=== PATIENT | female | born 1960 | race American Indian/Alaskan Native ===

== ENCOUNTER 2016-12-24 09:29 | Outpatient (CLI) | payer MEDICARE ==
--- NOTE | 2016-12-24 15:00 | Mammography Report ---
Bilateral digital screening mammogram with CAD. This is a new baseline study since the patient's prior mammogram was greater than 10 years ago and is unavailable. Findings: There is intermediate density of the fibroglandular tissue. Small circumscribed nodular opacities are seen in the axillary tail and axilla each breast consistent with small lymph nodes. No masses or architectural distortion. Impression: No suspicious findings. BI-RADS code: 2. Recommendation: Annual screening.
== END 2016-12-24 09:30 | disposition home or self-care (01) ==
LOC: MAMMO 09:29
PROVIDERS: ATTEND Internal Medicine
DX: Z12.31 Encounter for screening mammogram for malignant neoplasm of breast (principal)
CPT/HCPCS: 77067; G0202

== ENCOUNTER 2018-01-28 09:06 | Outpatient (CLI) | payer MEDICARE ==
--- NOTE | 2018-01-28 12:32 | Ultrasound Report ---
ULTRASOUND RENAL BILATERAL HISTORY: Hematuria. TECHNIQUE: transabdominal ultrasound with color Doppler interrogation. FINDINGS: The right kidney measures 9.4cm. Right renal cortex: 1.5cm. The left kidney measures 11.5cm. Left renal cortex: 1.3cm. Scans of the kidneys show normal renal contours. There is normal central calyceal clustering and good preservation of the cortical thickness. There is no evidence of mass or hydronephrosis. 3.4 cm simple cyst in the inferior left kidney is noted. The views of the bladder and the region of the ureters appear normal. IMPRESSION: Unremarkable renal ultrasound. Simple left renal cyst.
== END 2018-01-28 09:07 | disposition home or self-care (01) ==
LOC: US 09:06
PROVIDERS: ATTEND Internal Medicine
DX: N28.1 Cyst of kidney, acquired (principal)
CPT/HCPCS: 76770

== ENCOUNTER 2019-01-17 08:07 | Day surgery (SDC) | payer MEDICARE ==
[~2019-01-17 08:07] MED LIST: NACL 0.9% 1000 ML 1,000 ML IV SCH
--- NOTE | 2019-01-17 10:17 | Anesthesia Consultation ---
Anesthesia Consult and Med Hx Date of service: 01/17/19 - Airway Anesthetic Teeth Evaluation: Poor, Chipped ROM Head & Neck: Adequate Mental/Hyoid Distance: Adequate Mallampati Class: Class III Intubation Access Assessment: Probably Good - Pulmonary Exam CTA: Yes (decresed at bases) - Cardiac Exam Cardiac Exam: RRR - Pre-Operative Health Status ASA Pre-Surgery Classification: ASA3 Proposed Anesthetic Plan: MAC - Pulmonary Hx Smoking: Yes (3-4 cig per day) Hx Asthma: Yes (last attach one year ago) Hx Respiratory Symptoms: Yes SOB: Yes COPD: No Home Oxygen Therapy: No Hx Pneumonia: No Hx Sleep Apnea: Yes (CPAP) - Cardiovascular System Hx Hypertension: Yes Hx Coronary Artery Disease: No Hx Heart Attack/AMI: No Hx Angina: No Hx Percutaneous Transluminal Coronary Angioplasty (PTCA): No Hx Cardia Arrhythmia: Yes (IRRGULER HB, MVP) Hx Pacemaker: No Hx Internal Defibrillator: No Hx Valvular Heart Disease: No Hx Heart Murmur: No (MVP) Hx Peripheral Vascular Disease: No - Central Nervous System Hx Neuromuscular Disorder: Yes (NEUROPATHY HANDS, FEET, LEGS, ARMS) Hx Seizures: Yes CVA: Yes Hx Back Pain: Yes (HX OF MULTIPLE BACK SX) Hx Psychiatric Problems: No - Gastrointestinal Hx Ulcer: No Hx Gastroesophageal Reflux Disease: Yes (ASSOCIATED WITH FOODS, MEDICATIONS) - Endocrine Hx Renal Disease: No Hx End Stage Renal Disease: No Hx Cirrhosis: No Hx Liver Disease: No Hx Insulin Dependent Diabetes: No Hx Non-Insulin Dependent Diabetes: No Hx Thyroid Disease: No Hx Hypothyroidism: No Hx Hyperthyroidism: No - Hematic Hx Anemia: Yes Hx Sickle Cell Disease: No - Other Systems Hx Alcohol Use: No Hx Substance Use: No Hx Cancer: No
--- NOTE | 2019-01-17 10:20 | Anesthesia Day of Surgery ---
Anesthesia Day of Surgery - Day of Surgery Patient Examined: Yes Patient H&P Reviewed: Yes Patient is NPO: Yes Beta Blockers: No Cardiac Clearance: No Pulmonary Clearance: No Arsen's Test: N/A
--- NOTE | 2019-01-17 10:22 | Progress Note ---
Subjective Date of service: 01/17/19 Principal diagnosis: COLON SCREENING Interval history: SEIZURE CVA MANUEL CPAP SMOKER MVP ASTHMIA NEUROPATHY Objective - Constitutional Vitals: Vital Signs - 12hr 01/17/19 09:15 Temperature 98.4 F Pulse Rate 66 Respiratory 14 Rate Blood Pressure 170/97 O2 Sat by Pulse 98 Oximetry
[2019-01-17] MEDS ORDERED: DIPRIVAN 10 MG/ML IV ONE ×2 (10:33)
[2019-01-17] MEDS ORDERED: NORMODYNE IV ONE (10:56)
--- NOTE | 2019-01-17 11:08 | Short Stay Summary ---
Short Stay Documentation Date of service: 01/17/19 Narrative H&P: The patient presents for surveillance colonoscopy for polyps. Last study was 5 years ago. - History Past Medical History: hypertension, seizures, stroke, other (Asthma) Past Surgical History: cholecystectomy, hysterectomy, Other (brain surgery in 2014, hx spinal surgery) Social history: no smoking, no alcohol abuse - Allergies and Medications Current Medications: Allergies aspirin Allergy (Verified 12/02/17 13:38) Shortness of Breath Home Medications Medication Instructions Recorded Confirmed Last Taken Type hydrALAZINE [Apresoline TAB] 100 mg PO BID #60 tablet 11/11/15 01/17/19 01/17/19 Rx levETIRAcetam [Keppra TAB] 750 mg PO BID #60 tablet 11/11/15 01/17/19 01/16/19 Rx Gabapentin [Neurontin] 800 mg PO TID 04/28/18 01/17/19 01/16/19 History Clopidogrel [Plavix] 75 mg PO QDAY #30 tablet 04/29/18 01/17/19 01/14/19 Rx Albuterol Sulfate [Ventolin Hfa] 2 puff INHALATION DAILY PRN 01/16/19 01/17/19 01/16/19 History Fluticasone/Salmeterol(Nf) [Advair 1 puff INHALATION DAILY PRN 01/16/19 01/17/19 01/16/19 History HFA 115-21 mcg] Lisinopril [Zestril TAB] 10 mg PO QDAY 01/16/19 01/17/19 01/16/19 History Atorvastatin 1 tab PO DAILY 01/17/19 01/17/19 01/16/19 History cloNIDine [Catapres] 0.2 mg PO BID 01/17/19 01/17/19 01/16/19 History Active Medications Sodium Chloride (Nacl 0.9% 1000 Ml) 1,000 mls @ 50 mls/hr IV DIRECT PEDRO Last Admin: 01/17/19 09:15 Dose: 50 mls/hr Documented by: - Physical exam General appearance: no acute distress, well-nourished Integumentary: no rash, no growths, no abnormal pigmentation HEENT: Atraumatic, PERRLA, EOMI, Mucous membr. moist/pink Lungs: Clear to auscultation, Normal air movement Breasts: deferred Heart: Regular rate, Normal S1, Normal S2, No murmurs, Murmur, Gallops Gastrointestinal: normoactive bowel sounds, no absent bowel sounds, no tenderness, no distended, no masses, no guarding, no organomegaly Female Genitourinary: deferred Rectal Exam: normal exam-external/orifice, normal rectal tone, no mass Extremities: no ischemia, pulses intact, pulses symmetrical, No edema, normal temperature, normal color, Full ROM Neurological: Normal gait, Normal speech, Strength at 5/5 X4 ext, Normal tone, Sensation intact, Cranial nerves 3-12 NL - Brief post op/procedure progress note Date of procedure: 01/17/19 Findings: see dictated report Estimated blood loss: none Pathology: list (descending colon polyp) Specimen disposition: to lab Condition: stable - Disposition Condition at discharge: Good Disposition: DC-01 TO HOME OR SELFCARE - Discharge Diagnoses (1) History of colon polyps Status: Acute Short Stay Discharge Plan Activity: other (no driving for 24 hours. Restart plavix in 48 hours. Observation of stools for potential bleeding. May take ASA 81mg until restarting Plavix.) Follow up with: MORGAN FONTANEZ MD [Primary Care Provider] - 7 Days
--- NOTE | 2019-01-17 11:11 | Operative Report ---
Operative Report Operative Report: Date of procedure: 01/17/2019 Preprocedure diagnosis: History of colon polyps, last study 5 years ago. Post procedure diagnosis: 6 mm sessile descending colon polyp. Procedure: Colonoscopy to the cecum with cold snare resection and retrieval. Endoscopist: Dr. Rae Anesthesia: Monitored anesthesia care per anesthesia department Estimated blood loss: 0 Medications: Monitored anesthesia care. See separate report by anesthesia for details. After careful discussion of the nature and purpose of the procedure as well as details of the technique risks benefits and alternatives the patient gave consent. Please see recent history and physical from the office. The patient was placed in the left lateral decubitus position and medicated per anesthesia. A rectal exam was performed sphincter tone was normal there were no masses palpable. The [employer] 570 scope was passed transanally and advanced under continuous direct vision without difficulty to the cecum. The colon was well prepared. The cecum was normal. The ascending colon was normal and on forward and retroflexed views. The transverse colon and sigmoid colon were normal. There was a 6 mm sessile polyp in the descending colon. The polyp was removed carefully with the cold snare and retrieved by suction. No bleeding was encountered on prolonged observation. The rectum was normal on forward and retroflexed views. The procedure was well-tolerated overall and the patient was observed in recovery. Conclusions: 6 mm sessile polyp in the descending colon. Plan: Repeat colonoscopy in 5 years. Restart Plavix in 48 hours. Signed electronically: Luis Rae M.D.
[2019-01-17 11:27] VITALS: BP 172/97
--- NOTE | 2019-01-17 13:39 | Post Anesthesia Evaluation ---
- Post Anesthesia Evaluation Patient Participated: Yes (sleeping) Airway Patent: Yes Stable Respiratory Function: Yes Nausea/Vomiting: No Temp > 96.8F: Yes Pain Manageable: Yes Adequeate Hydration: Yes Anesthesia Complications: No Block Receding Appropriately: Not Applicable Patient on Ventilator: No
== END 2019-01-17 08:08 | disposition home or self-care (01) ==
LOC: GIO 08:07
PROVIDERS: ATTEND Internal Medicine Gastroenterology
DX: Z12.11 Encounter for screening for malignant neoplasm of colon (principal); K63.5 Polyp of colon; I10 Essential (primary) hypertension; G40.909 Epilepsy, unspecified, not intractable, without status epilepticus; G47.33 Obstructive sleep apnea (adult) (pediatric); E78.5 Hyperlipidemia, unspecified; E78.00 Pure hypercholesterolemia, unspecified; J45.909 Unspecified asthma, uncomplicated; K21.9 Gastro-esophageal reflux disease without esophagitis; M19.90 Unspecified osteoarthritis, unspecified site; F32.9 Major depressive disorder, single episode, unspecified; E66.01 Morbid (severe) obesity due to excess calories; Z68.34 Body mass index [BMI] 34.0-34.9, adult; Z86.718 Personal history of other venous thrombosis and embolism; Z79.899 Other long term (current) drug therapy; Z88.6 Allergy status to analgesic agent; Z98.891 History of uterine scar from previous surgery; Z90.49 Acquired absence of other specified parts of digestive tract; Z98.51 Tubal ligation status; Z90.710 Acquired absence of both cervix and uterus; Z87.442 Personal history of urinary calculi; Z80.3 Family history of malignant neoplasm of breast; Z91.81 History of falling; Z98.890 Other specified postprocedural states; Z86.73 Personal history of transient ischemic attack (TIA), and cerebral infarction without residual deficits; Z86.2 Personal history of diseases of the blood and blood-forming organs and certain disorders involving the immune mechanism; Z86.69 Personal history of other diseases of the nervous system and sense organs
CPT/HCPCS: 45385; 88305; J2704; J7030

== ENCOUNTER 2019-05-31 12:35 | Emergency (ER) | payer MEDICARE ==
[2019-05-31] MEDS ORDERED: PROVENTIL IH ONE (13:19)
[2019-05-31] MEDS ORDERED: TYLENOL PO ONE (13:19)
[2019-05-31] MEDS ORDERED: NACL 0.9% 500 ML 500 ML IV ONE (13:19)
[2019-05-31] MEDS ORDERED: CARAFATE PO ONE (13:19)
[2019-05-31] MEDS ORDERED: PEPCID IV ONE (13:19)
--- NOTE | 2019-05-31 13:31 | Emergency Department Report ---
<KIRK SYKES - Last Filed: 05/31/19 15:38> ED General Adult HPI - General Chief complaint: Dyspnea/Respdistress Stated complaint: RAMBO Time Seen by Provider: 05/31/19 13:13 Source: patient, EMS (ems notes not available at time of chart dictation), RN notes reviewed, old records reviewed Mode of arrival: Stretcher Limitations: Physical Limitation - History of Present Illness Initial comments: This is a 58-year-old female. The patient is not known to this provider previously. Past medical history includes hypokalemia, hypertension, chest pain, asthma. Patient had a negative nuclear stress test last year. Patient al so had a CT scan of her chest last year negative for pulmonary embolism. Patient presents to the ER today with complaint of nontraumatic central chest wall pain, cough, wheezing, shortness of breath. The chest pain is central and does not radiate anywhere. It does not have exacerbating or relieving factors. Patient's is reportedly wheezing upon arrival with EMS, given Solu-Medrol, magnesium, and albuterol. The patient denies DVT, pulmonary embolus risk factors. No recent aspirin consumption. Patient makes no complaint of headache, neck pain, abdominal pain, irritative sinus obstructive urinary symptoms, and denies additional symptoms all given. Currently, the patient is speaking on her cell phone and does not appear to be in any acute distress. -: Gradual, hour(s) Location: chest Severity scale (0 -10): 8 Quality: aching Consistency: other Improves with: other Worsens with: other - Related Data Home Medications Medication Instructions Recorded Confirmed Last Taken Gabapentin [Neurontin] 800 mg PO TID 04/28/18 01/17/19 01/16/19 Albuterol Sulfate [Ventolin Hfa] 2 puff INHALATION DAILY PRN 01/16/19 01/17/19 01/16/19 Fluticasone/Salmeterol(Nf) [Advair 1 puff INHALATION DAILY PRN 01/16/19 01/17/19 01/16/19 HFA 115-21 mcg] Lisinopril [Zestril TAB] 10 mg PO QDAY 01/16/19 01/17/19 01/16/19 Atorvastatin 1 tab PO DAILY 01/17/19 01/17/19 01/16/19 cloNIDine [Catapres] 0.2 mg PO BID 01/17/19 01/17/19 01/16/19 Previous Rx's Medication Instructions Recorded Last Taken Type hydrALAZINE [Apresoline TAB] 100 mg PO BID #60 tablet 11/11/15 01/17/19 Rx levETIRAcetam [Keppra TAB] 750 mg PO BID #60 tablet 11/11/15 01/16/19 Rx Acetaminophen [Non-Aspirin Extra 500 mg PO Q6HR PRN #30 tablet 05/31/19 Unknown Rx Strength] Albuterol Sulfate [Proair 90 mcg IH Q4HR PRN #2 aer.pow.ba 05/31/19 Unknown Rx Respiclick] Doxycycline Hyclate [Doxycycline 100 mg PO Q12HR 7 Days #14 tab 05/31/19 Unknown Rx Hyclate TAB] Famotidine [Pepcid] 20 mg PO BID #30 tablet 05/31/19 Unknown Rx Potassium Chloride 20 meq PO BID #30 packet 05/31/19 Unknown Rx predniSONE [Deltasone] 40 mg PO QDAY #8 tab 05/31/19 Unknown Rx Allergies Allergy/AdvReac Type Severity Reaction Status Date / Time aspirin Allergy Shortness Verified 12/02/17 13:38 of Breath ED Review of Systems Constitutional: denies: diaphoresis, fever, malaise Eyes: denies: eye discharge ENT: congestion Respiratory: shortness of breath, wheezing Cardiovascular: chest pain Gastrointestinal: denies: vomiting Genitourinary: denies: dysuria Musculoskeletal: denies: back pain Skin: denies: lesions Neurological: denies: weakness Psychiatric: denies: anxiety ED Past Medical Hx - Past Medical History Hx Hypertension: Yes Hx CVA: Yes Hx Heart Attack/AMI: No Hx Congestive Heart Failure: No Hx Diabetes: No Hx Deep Vein Thrombosis: Yes Hx Liver Disease: No Hx Renal Disease: No Hx Sickle Cell Disease: No Hx Arthritis: Yes Hx Seizures: Yes Hx Kidney Stones: Yes Hx Asthma: Yes (last attach one year ago) Hx COPD: No Additional medical history: Sleep apnea. intubated 4 times due to asthma. gallstones. -January 2016 - Surgical History Hx Pacemaker: No Hx Internal Defibrillator: No Hx Cholecystectomy: Yes Additional Surgical History: blood clots to right side of head, stent to carotid artery? hysterectomy. kidney stones. back sugery-rods/screws placed in December - Social History Smoking Status: Former Smoker Substance Use Type: None - Medications Home Medications: Home Medications Medication Instructions Recorded Confirmed Last Taken Type hydrALAZINE [Apresoline TAB] 100 mg PO BID #60 tablet 11/11/15 01/17/19 01/17/19 Rx levETIRAcetam [Keppra TAB] 750 mg PO BID #60 tablet 11/11/15 01/17/19 01/16/19 Rx Gabapentin [Neurontin] 800 mg PO TID 04/28/18 01/17/19 01/16/19 History Albuterol Sulfate [Ventolin Hfa] 2 puff INHALATION DAILY PRN 01/16/19 01/17/19 01/16/19 History Fluticasone/Salmeterol(Nf) [Advair 1 puff INHALATION DAILY PRN 01/16/19 01/17/19 01/16/19 History HFA 115-21 mcg] Lisinopril [Zestril TAB] 10 mg PO QDAY 01/16/19 01/17/19 01/16/19 History Atorvastatin 1 tab PO DAILY 01/17/19 01/17/19 01/16/19 History cloNIDine [Catapres] 0.2 mg PO BID 01/17/19 01/17/19 01/16/19 History Acetaminophen [Non-Aspirin Extra 500 mg PO Q6HR PRN #30 tablet 05/31/19 Unknown Rx Strength] Albuterol Sulfate [Proair 90 mcg IH Q4HR PRN #2 aer.pow.ba 05/31/19 Unknown Rx Respiclick] Doxycycline Hyclate [Doxycycline 100 mg PO Q12HR 7 Days #14 tab 05/31/19 Unknown Rx Hyclate TAB] Famotidine [Pepcid] 20 mg PO BID #30 tablet 05/31/19 Unknown Rx Potassium Chloride 20 meq PO BID #30 packet 05/31/19 Unknown Rx predniSONE [Deltasone] 40 mg PO QDAY #8 tab 05/31/19 Unknown Rx ED Physical Exam - General Limitations: No Limitations General appearance: alert, in no apparent distress - Head Head exam: Present: atraumatic, normocephalic - Eye Eye exam: Present: normal appearance. Absent: nystagmus - ENT ENT exam: Present: normal exam, normal orophraynx, mucous membranes moist, normal external ear exam - Neck Neck exam: Present: normal inspection, full ROM. Absent: tenderness, meningismus - Respiratory Respiratory exam: Present: decreased breath sounds. Absent: respiratory distress, wheezes, rhonchi, stridor - Cardiovascular Cardiovascular Exam: Present: regular rate, normal rhythm, normal heart sounds. Absent: bradycardia, tachycardia, irregular rhythm, systolic murmur, diastolic murmur, rubs, gallop - GI/Abdominal GI/Abdominal exam: Present: soft. Absent: distended, tenderness, guarding, rebound, rigid, pulsatile mass - Extremities Exam Extremities exam: Present: normal inspection, full ROM, other (2+ pulses noted in the bilateral upper, lower extremities. Compartments soft. No long bony tenderness. The pelvis is stable.). Absent: pedal edema, joint swelling, calf tenderness - Back Exam Back exam: Present: normal inspection, full ROM. Absent: tenderness, CVA tenderness (R), CVA tenderness (L), paraspinal tenderness, vertebral tenderness - Neurological Exam Neurological exam: Present: alert, oriented X3, other (Extraocular movements intact. Tongue midline. No facial droop. Facial sensation intact to light touch in the V1, V2, V3 distribution bilaterally. 5 and 5 strength in 4 extremities.. Sensation is intact to light touch in 4 extremities.). Absent: motor sensory deficit - Psychiatric Psychiatric exam: Present: normal affect, normal mood - Skin Skin exam: Present: warm, dry, intact, normal color. Absent: rash ED Course - Reevaluation(s) Reevaluation #1: 05/31/19 15:18 Differential diagnosis, including but not limited to: GERD, gastritis, costochondritis, pneumonia, pneumonitis, acute coronary syndrome, pulmonary embolism Assessment and plan: 58-year-old female, no pulmonary embolus or DVT risk factors, low risk by well's criteria, not tachycardic currently, not Currently, EKG unchanged from prior, negative nuclear stress test March 2018, low risk for major adverse cardiac event as per the heart score. Then to be hypokalemic, again, as last year, her potassium will be repleted, we will treat her pain, d-dimer sent, elevated, CT scan of the chest pending, repeat troponin pending, repeat EKG pending. Reevaluation #2: 05/31/19 15:38 care will be transferred to the oncoming physician, Dr. Guardado, to follow up on repeat EKG, troponin, and CT scan of the chest. Patient resting comfortably in stretcher, and in no acute distress, continues to play on a cellular phone. ED Medical Decision Making - Lab Data Result diagrams: 05/31/19 13:24 05/31/19 13:24 Vital Signs 05/31/19 05/31/19 05/31/19 12:48 12:57 13:00 Pulse Rate 91 H Respiratory 23 16 Rate Blood Pressure 159/93 Blood Pressure 159/80 [Right] O2 Sat by Pulse 98 98 96 Oximetry 05/31/19 05/31/19 05/31/19 13:30 14:00 14:30 Pulse Rate 80 84 86 Respiratory 22 12 18 Rate Blood Pressure 146/73 154/95 171/92 Blood Pressure [Right] O2 Sat by Pulse 94 92 92 Oximetry 05/31/19 15:00 Pulse Rate 80 Respiratory 14 Rate Blood Pressure 165/90 Blood Pressure [Right] O2 Sat by Pulse 99 Oximetry Lab Results 05/31/19 05/31/19 05/31/19 Range/Units 13:24 13:24 13:24 WBC 5.3 (4.5-11.0) K/mm3 RBC 4.82 (3.65-5.03) M/mm3 Hgb 11.7 (10.1-14.3) gm/dl Hct 35.4 (30.3-42.9) % MCV 73 L (79-97) fl MCH 24 L (28-32) pg MCHC 33 (30-34) % RDW 15.9 H (13.2-15.2) % Plt Count 252 (140-440) K/mm3 Lymph % (Auto) 20.1 (13.4-35.0) % [place] % (Auto) 5.3 (0.0-7.3) % Eos % (Auto) 0.2 (0.0-4.3) % Baso % (Auto) 0.2 (0.0-1.8) % Lymph # 1.1 L (1.2-5.4) K/mm3 [place] # 0.3 (0.0-0.8) K/mm3 Eos # 0.0 (0.0-0.4) K/mm3 Baso # 0.0 (0.0-0.1) K/mm3 Seg Neutrophils % 74.2 H (40.0-70.0) % Seg Neutrophils # 4.0 (1.8-7.7) K/mm3 PT 13.2 (12.2-14.9) Sec. INR 1.03 (0.87-1.13) D-Dimer 383.19 H (0-234) ng/mlDDU Sodium 140 (137-145) mmol/L Potassium 2.8 L* (3.6-5.0) mmol/L Chloride 102.5 (98-107) mmol/L Carbon Dioxide 22 (22-30) mmol/L Anion Gap 18 mmol/L BUN 9 (7-17) mg/dL Creatinine 0.5 L (0.7-1.2) mg/dL Estimated GFR > 60 ml/min BUN/Creatinine Ratio 18 % Glucose 135 H (65-100) mg/dL Calcium 9.0 (8.4-10.2) mg/dL Troponin T < 0.010 (0.00-0.029) ng/mL - EKG Data -: EKG Interpreted by [place] EKG shows normal: sinus rhythm Rate: normal - EKG Data When compared to previous EKG there are: no significant change 05/31/19 15:18 EKG #1 shows a normal sinus rhythm, 80 bpm, with axis deviation, left anterior fascicular block, prolonged IL interval, LVH, abnormal EKG, not consistent with ST elevation myocardial infarction, this is unchanged from prior EKG from 04/28/2018. - Radiology Data Radiology results: pending, report reviewed, image reviewed X-ray the chest is negative for acute disease ED Disposition Clinical Impression: Asthma exacerbation, Hypokalemia, Acute chest pain, Acute bronchitis Disposition: DC-01 TO HOME OR SELFCARE Is pt being admited?: No Does the pt Need Aspirin: No Condition: Stable Instructions: Acute Bronchitis (ED), Chest Pain (ED) Additional Instructions: Take the medications as needed/directed. Drink 5 cups of water per day for the next 7 days. Do not consume metformin medication, if patient takes his medication for the next 48 hours. Follow up with the primary care doctor or dog day care attendant within the next 3-5 days for further outpatient evaluation of chest pain. Return to the emergency room right away with new, worsening or different symptoms not present on initial emergency room evaluation. Prescriptions: predniSONE [Deltasone] 40 mg PO QDAY #8 tab Doxycycline Hyclate [Doxycycline Hyclate TAB] 100 mg PO Q12HR 7 Days #14 tab Acetaminophen [Non-Aspirin Extra Strength] 500 mg PO Q6HR PRN #30 tablet PRN Reason: Pain , Severe (7-10) Famotidine [Pepcid] 20 mg PO BID #30 tablet Potassium Chloride 20 meq PO BID #30 packet Albuterol Sulfate [Proair Respiclick] 90 mcg IH Q4HR PRN #2 aer.pow.ba PRN Reason: Wheezing Referrals: MORGAN OFNTANEZ [Other] - 3-5 Days JEEVAN SNOW MD [Staff Physician] - 3-5 Days <PRITESH GUARDADO - Last Filed: 05/31/19 20:38> ED Review of Systems ROS: Stated complaint: RAMBO Other details as noted in HPI ED Course Vital Signs 05/31/19 05/31/19 05/31/19 12:48 12:57 13:00 Pulse Rate 91 H Respiratory 23 16 Rate Blood Pressure 159/93 Blood Pressure 159/80 [Right] O2 Sat by Pulse 98 98 96 Oximetry 05/31/19 05/31/19 05/31/19 13:30 14:00 14:30 Pulse Rate 80 84 86 Respiratory 22 12 18 Rate Blood Pressure 146/73 154/95 171/92 Blood Pressure [Right] O2 Sat by Pulse 94 92 92 Oximetry 05/31/19 05/31/19 05/31/19 15:00 15:30 16:00 Pulse Rate 80 91 H 90 Respiratory 14 22 22 Rate Blood Pressure 165/90 165/90 175/97 Blood Pressure [Right] O2 Sat by Pulse 99 Oximetry 05/31/19 05/31/19 05/31/19 16:50 17:00 17:30 Pulse Rate 90 90 82 Respiratory 21 19 Rate Blood Pressure 163/96 173/93 163/96 Blood Pressure [Right] O2 Sat by Pulse 98 99 Oximetry ED Medical Decision Making - Lab Data Result diagrams: 05/31/19 13:24 05/31/19 13:24 - Medical Decision Making I evaluated Mrs. Sanchez. She felt much better. She had clear breath sounds on exam. Serial troponins 3 negative. EKG second EKG without acute ischemic changes. CT angiogram without pulmonary embolus and there are upper lobe opacities possible atypical infection. I have prescribed antibiotics. Antibiotics are indicated with CT findings of possible infection. Repeat EKG obtained 1856 Normal sinus rhythm rate 85 beats a minute normal axis normal QT internval for age and gender no ST elevation normal T wave pattern Critical care attestation.: If time is entered above; I have spent that time in minutes in the direct care of this critically ill patient, excluding procedure time. ED Disposition Is pt being admited?: No Does the pt Need Aspirin: No
--- NOTE | 2019-05-31 13:57 | XRay Report ---
CHEST 2 VIEWS INDICATION / CLINICAL INFORMATION: Chest Pain. COMPARISON: None available. FINDINGS: SUPPORT DEVICES: None. HEART / MEDIASTINUM: No significant abnormality. LUNGS / PLEURA: No significant pulmonary or pleural abnormality. No pneumothorax. ADDITIONAL FINDINGS: No significant additional findings. IMPRESSION: No significant abnormality. Signer Name: Richard Baird MD FACR Signed: 05/31/2019 1:53 PM Workstation Name: [id number]
[2019-05-31 14:04] LABS: Basophils % (Auto) 0.2 % (0.0-1.8); Eosinophils % (Auto) 0.2 % (0.0-4.3); Hematocrit 35.4 % (30.3-42.9); Hemoglobin 11.7 gm/dl (10.1-14.3); Lymphocytes # (Auto) 1.1 K/mm3 (1.2-5.4); Lymphocytes % (Auto) 20.1 % (13.4-35.0); Mean Corpuscular HGB Conc 33 % (30-34); Mean Corpuscular Volume 73 fl (79-97); Monocytes # (Auto) 0.3 K/mm3 (0.0-0.8); Monocytes % (Auto) 5.3 % (0.0-7.3); Platelet Count 252 K/mm3 (140-440); Red Blood Count 4.82 M/mm3 (3.65-5.03); Red Cell Distribution Width 15.9 % (13.2-15.2)
[2019-05-31 14:15] LABS: INR 1.03 (0.87-1.13)
[2019-05-31 14:31] LABS: BUN/Creatinine Ratio 18; Blood Urea Nitrogen 9 mg/dL (7-17); Hemolysis Index 3
[2019-05-31] MEDS ORDERED: K-DUR PO ONE (14:39)
[2019-05-31] MEDS: KCL 10MEQ/100ML 10 MEQ/100 ML BAG IV SCH ×4 (15:13→19:08)
--- NOTE | 2019-05-31 17:16 | Cat Scan Report ---
CTA CHEST WITH IV CONTRAST INDICATION: Shortness of breath and chest pain. TECHNIQUE: Axial CT images were obtained through the chest after injection of 100 cc of IV Omnipaque 350 IV cont rast. 3 plane MIP reconstructions were produced. All CT scans at this location are performed using CT dose reduction for ALARA by means of automated exposure control. COMPARISON: CTA chest on 04/28/2018. FINDINGS: Pulmonary Arteries: No pulmonary emboli. Lungs: There are scattered foci of upper lobe predominant peripheral inflammatory tree-in-bud nodular opacities superimposed on chronic subpleural reticulation in both lung apices. There is no pleural e ffusion or pneumothorax. Trachea and Bronchi: No significant abnormality. Heart and Pericardium: Mild coronary atherosclerotic calcifications. Vasculature: No significant abnormality. Lymphatics: No lymphadenopathy. Additional Findings: None. Upper Abdomen: No acute findings. Multiple simple appearing hepatic cysts appear similar to prior trinity dy. Skeletal Structures: There is focal endplate cystic change and disc height loss at the T10 and T11 ve rtebral level with some adjacent soft tissue swelling. IMPRESSION: 1. No CT evidence for pulmonary embolism. 2. Upper lobe predominant areas of tree-in-bud nodular opacities most likely reflecting atypical infe ctious or inflammatory process superimposed upon chronic biapical subpleural reticulation. 3. Endplate cystic change with adjacent mild soft tissue swelling at the T10-T11 this level. My suspi cion is that this is most likely secondary to advanced degenerative disc disease at this level. Howev er, early discitis/osteomyelitis could have a similar appearance. Signer Name: Shaun Sharif MD Signed: 05/31/2019 5:11 PM Workstation Name: [id number]
[2019-05-31] MEDS ORDERED: NACL 0.9% 500 ML 500 ML ONE (17:56)
[2019-05-31 22:40] VITALS: BP 175/89
== END 2019-05-31 20:39 | disposition home or self-care (01) ==
LOC: ED 12:35
DX: J45.901 Unspecified asthma with (acute) exacerbation (principal); E87.6 Hypokalemia; R07.9 Chest pain, unspecified; J20.9 Acute bronchitis, unspecified; I10 Essential (primary) hypertension; I25.2 Old myocardial infarction; M19.90 Unspecified osteoarthritis, unspecified site; R56.9 Unspecified convulsions; Z86.718 Personal history of other venous thrombosis and embolism; Z86.73 Personal history of transient ischemic attack (TIA), and cerebral infarction without residual deficits; Z87.442 Personal history of urinary calculi; Z86.711 Personal history of pulmonary embolism; Z90.49 Acquired absence of other specified parts of digestive tract; Z87.891 Personal history of nicotine dependence; Z88.8 Allergy status to other drugs, medicaments and biological substances; Z79.899 Other long term (current) drug therapy
CPT/HCPCS: 36415; 71046; 71275; 80048; 83735; 84484; 85025; 85379; 85610; 93005; 93010; 96365; 96366; 96375; 99285; J3480; J7040; Q9967

== ENCOUNTER 2019-12-02 04:55 | Observation (INO) | payer MEDICARE ==
[2019-12-02 06:25] LABS: Basophils % (Auto) 0.7 % (0.0-1.8); Eosinophils # (Auto) 0.1 K/mm3 (0.0-0.4); Eosinophils % (Auto) 1.7 % (0.0-4.3); Hematocrit 37.9 % (30.3-42.9); Hemoglobin 11.9 gm/dl (10.1-14.3); Lymphocytes # (Auto) 1.5 K/mm3 (1.2-5.4); Lymphocytes % (Auto) 39.8 % (13.4-35.0); Mean Corpuscular HGB Conc 31 % (30-34); Mean Corpuscular Volume 73 fl (79-97); Monocytes # (Auto) 0.4 K/mm3 (0.0-0.8); Monocytes % (Auto) 11.3 % (0.0-7.3); Platelet Count 282 K/mm3 (140-440); Red Blood Count 5.18 M/mm3 (3.65-5.03); Red Cell Distribution Width 15.5 % (13.2-15.2)
--- NOTE | 2019-12-02 06:28 | XRay Report ---
CHEST 1 VIEW, 12/02/2019 6:07 AM CLINICAL INFORMATION/INDICATION: Chest pain COMPARISON: Chest radiograph, 05/31/2019 FINDINGS: SUPPORT DEVICES: None. HEART: The cardiac silhouette is normal in size. LUNGS/PLEURA: There is no focal airspace disease or significant pleural effusion. Scarring is again n oted at the bilateral lung apices. ADDITIONAL FINDINGS: No additional acute findings. IMPRESSION: 1. No evidence of acute cardiopulmonary process. Signer Name: Cathy Lynn MD Signed: 12/02/2019 6:23 AM Workstation Name: [id number]
[2019-12-02 06:46] LABS: BUN/Creatinine Ratio 30; Blood Urea Nitrogen 15 mg/dL (7-17); Calcium 8.8 mg/dL (8.4-10.2); Hemolysis Index 3
--- NOTE | 2019-12-02 08:16 | Emergency Department Report ---
ED Chest Pain HPI - General Chief Complaint: Chest Pain Stated Complaint: CHEST PAIN Time Seen by Provider: 12/02/19 08:11 Source: patient, family Mode of arrival: Ambulatory Limitations: No Limitations - History of Present Illness Initial Comments: This is a 59-year-old female complains of intermittent chest heaviness during the night. She states that she has been somewhat short of breath but denies nausea and vomiting. She stated that she was sweaty. She is concerned that her potassium is low because her fingertips are numb. However, she has a history of neuropathy as well with various paresthesias and leg pain in the past. She does not complain of cough or pleuritic pain. She's had no recent travel. She states that she's been to [facility] in the past. They have diagnosed her with "mitral valve prolapse". She denies previous cardiac catheterization or stress testing. 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 I do not see that specifically diagnosed. However I do note that the patient had a normal MRI associated with "acute right hemiparesis". Hospitalization 09/16: Reason for admission: left-sided weakness, UTI, seizure disorder, hypertension Condition: Stable Pertinent studies: MRI of the brain was unremarkable for any acute infection, MRI of cervical spine showed small Deeks protrusion and C3 to C4 and C4 to C5 Procedures: None Hospital course: 59 YO Female with HTN, MANUEL, Obesity, Seizure Disorder, CVA RHP, DVT not taking therapeutic anticoagulation, OA, Nephrolithiasis, Asthma presents to ED for evaluation. Pt states that she experienced sudden onset weakness and numbness to her right side, as well as inability to talk and difficulty swallowing. Pt states that her symptoms are markedly worse than usual. Pt reports feeling like "My right side is as heavy as an elephant today". Pt states that symptoms began at 1130 hrs on the day prior to presentation. Pt reports that symptoms have not improved upon waking this morning. Pt transported to [facility]. Pt seen and evaluated in ED and found to have symptoms consistent with new CVA with worsening RHP. Teleneurology consulted. Pt outside therapeutic window for TPA. Pt admitted to telemetry and initiated on CVA protocol. Pt denies fever, chills, CP, Palpitations, NVD, Syncope, BRBPR, Recent ill contacts, leg swelling, calf pain, prolonged travel/immobility, hemoptysis, or productive cough. Pt admitted to telemetry. Patient takes Plavix and is allergic to aspirin. Prior admission on 04/28/18 reviewed. On admission patient was commenced on aspirin and statins. MRI of the brain was done. Unremarkable for any acute ischemia. Neuro consult was obtained. No acute ischemia identified. UTI was identified on admission. Patient treated with IV antibiotics. Symptoms improved. Discharged to follow primary care physician and neurologist in 3 days Disposition: DC-01 TO HOME OR SELFCARE - Discharge Diagnoses (1) Acute right hemiparesis Status: Acute (2) HTN (hypertension) Status: Acute Qualifiers: Hypertension type: essential hypertension Qualified Code(s): I10 - Essential (primary) hypertension (3) Obesity hypoventilation syndrome Status: Acute (4) Seizure Status: Acute (5) Accelerated hypertension Status: Acute MD Complaint: chest pain -: Gradual, minutes(s) (episodes last minutes), hour(s) (intermittently for hours) Onset: during rest Pain Location: substernal Pain Radiation: none Severity scale (0 -10): 8 Quality: heaviness Consistency: intermittent Improves With: nothing Worsens With: nothing re: diaphoresis (states sweating but not acute diaphoresis), dyspnea (not ongoing). denies: nausea, vomting Other Symptoms: denies: cough, fever, syncope Treatments Prior to Arrival: none - Related Data Home Medications Medication Instructions Recorded Confirmed Last Taken Fluticasone/Salmeterol(Nf) [Advair 1 puff INHALATION DAILY PRN 01/16/19 09/04/19 09/04/19 HFA 115-21 mcg] Previous Rx's Medication Instructions Recorded Last Taken Type Albuterol Sulfate [Proair 90 mcg IH Q4HR PRN #2 aer.[email or web address] 05/31/19 09/04/19 Rx Respiclick] Famotidine [Pepcid] 20 mg PO BID #30 tablet 05/31/19 09/04/19 Rx Arformoterol Nebu [Brovana Nebu] 15 mcg IH Q12HRT ml 09/11/19 Unknown Rx AtorvaSTATin [Lipitor] 40 mg PO QHS tablet 09/11/19 Unknown Rx Atorvastatin 40 mg PO DAILY #30 09/11/19 Unknown Rx Budesonide [Pulmicort Respules] 0.5 mg IH Q12HRT #60 nebu 09/11/19 Unknown Rx Clopidogrel [Plavix] 75 mg PO QDAY #30 tablet 09/11/19 Unknown Rx Gabapentin 400 mg PO TID #90 capsule 09/11/19 Unknown Rx cloNIDine [Catapres] 0.2 mg PO BID tablet 09/11/19 Unknown Rx cloNIDine [Catapres] 0.2 mg PO BID #60 09/11/19 Unknown Rx hydrALAZINE [Apresoline TAB] 100 mg PO BID #60 tab 09/11/19 Unknown Rx hydrALAZINE [Apresoline TAB] 100 mg PO BID #60 tablet 09/11/19 Unknown Rx levETIRAcetam [Keppra TAB] 750 mg PO BID #60 tablet 09/11/19 Unknown Rx lisinopriL [Zestril TAB] 10 mg PO QDAY tablet 09/11/19 Unknown Rx lisinopriL [Zestril TAB] 10 mg PO QDAY #30 09/11/19 Unknown Rx Allergies Allergy/AdvReac Type Severity Reaction Status Date / Time aspirin Allergy Shortness Verified 12/02/17 13:38 of Breath Heart Score - HEART Score History: Moderately suspicious EKG: Normal Age: 45-65 Risk factors: > 3 risk factors or hx of atherosclerotic disease Troponin: < normal limit HEART Score: 4 - Critical Actions Critical Actions: 4-6 pts:12-16.6% risk of adverse cardiac event. Should be admitted ED Review of Systems ROS: Stated complaint: CHEST PAIN Other details as noted in HPI Constitutional: denies: chills, fever Eyes: denies: eye pain, eye discharge, vision change ENT: denies: ear pain, throat pain Respiratory: shortness of breath. denies: cough, wheezing Cardiovascular: chest pain. denies: palpitations Endocrine: no symptoms reported Gastrointestinal: denies: abdominal pain, nausea, diarrhea Genitourinary: denies: urgency, dysuria, discharge Musculoskeletal: denies: back pain, joint swelling, arthralgia Skin: denies: rash, lesions Neurological: paresthesias. denies: headache, weakness, numbness, confusion, abnormal gait, vertigo Psychiatric: denies: anxiety, depression Hematological/Lymphatic: denies: easy bleeding, easy bruising ED Past Medical Hx - Past Medical History Previous Medical History?: Yes Hx Hypertension: Yes Hx CVA: Yes Hx Heart Attack/AMI: No Hx Congestive Heart Failure: No Hx Diabetes: No Hx Deep Vein Thrombosis: Yes Hx Liver Disease: No Hx Renal Disease: No Hx Sickle Cell Disease: No Hx Arthritis: Yes Hx Seizures: Yes Hx Kidney Stones: Yes Hx Asthma: Yes (last attach one year ago) Hx COPD: No Hx HIV: No Additional medical history: Sleep apnea. intubated 4 times due to asthma. gallstones. -January 2016 - Surgical History Past Surgical History?: Yes Hx Pacemaker: No Hx Internal Defibrillator: No Hx Cholecystectomy: Yes Additional Surgical History: blood clots to right side of head, stent to carotid artery? hysterectomy, MVP,. kidney stones. back sugery-rods/screws placed in December - Social History Smoking Status: Never Smoker Substance Use Type: None - Medications Home Medications: Home Medications Medication Instructions Recorded Confirmed Last Taken Type Fluticasone/Salmeterol(Nf) [Advair 1 puff INHALATION DAILY PRN 01/16/19 09/04/19 09/04/19 History HFA 115-21 mcg] Albuterol Sulfate [Proair 90 mcg IH Q4HR PRN #2 aer.[email or web address] 05/31/19 09/04/19 09/04/19 Rx Respiclick] Famotidine [Pepcid] 20 mg PO BID #30 tablet 05/31/19 09/04/19 09/04/19 Rx Arformoterol Nebu [Brovana Nebu] 15 mcg IH Q12HRT ml 09/11/19 Unknown Rx AtorvaSTATin [Lipitor] 40 mg PO QHS tablet 09/11/19 Unknown Rx Atorvastatin 40 mg PO DAILY #30 09/11/19 Unknown Rx Budesonide [Pulmicort Respules] 0.5 mg IH Q12HRT #60 nebu 09/11/19 Unknown Rx Clopidogrel [Plavix] 75 mg PO QDAY #30 tablet 09/11/19 Unknown Rx Gabapentin 400 mg PO TID #90 capsule 09/11/19 Unknown Rx cloNIDine [Catapres] 0.2 mg PO BID tablet 09/11/19 Unknown Rx cloNIDine [Catapres] 0.2 mg PO BID #60 09/11/19 Unknown Rx hydrALAZINE [Apresoline TAB] 100 mg PO BID #60 tab 09/11/19 Unknown Rx hydrALAZINE [Apresoline TAB] 100 mg PO BID #60 tablet 09/11/19 Unknown Rx levETIRAcetam [Keppra TAB] 750 mg PO BID #60 tablet 09/11/19 Unknown Rx lisinopriL [Zestril TAB] 10 mg PO QDAY tablet 09/11/19 Unknown Rx lisinopriL [Zestril TAB] 10 mg PO QDAY #30 09/11/19 Unknown Rx ED Physical Exam - General Limitations: No Limitations General appearance: alert, in no apparent distress - Head Head exam: Present: atraumatic, normocephalic - Eye Eye exam: Present: normal appearance. Absent: scleral icterus - ENT ENT exam: Present: mucous membranes moist - Neck Neck exam: Present: normal inspection - Respiratory Respiratory exam: Present: normal lung sounds bilaterally. Absent: respiratory distress - Cardiovascular Cardiovascular Exam: Present: regular rate, normal rhythm. Absent: systolic murmur, diastolic murmur, rubs, gallop - GI/Abdominal GI/Abdominal exam: Present: soft, normal bowel sounds. Absent: distended, tenderness, guarding, rebound - Extremities Exam Extremities exam: Present: normal inspection - Back Exam Back exam: Present: normal inspection - Neurological Exam Neurological exam: Present: alert, oriented X3, CN II-XII intact. Absent: motor sensory deficit - Psychiatric Psychiatric exam: Present: normal affect, normal mood - Skin Skin exam: Present: warm, dry, intact, normal color. Absent: rash ED Course Vital Signs 12/02/19 12/02/19 12/02/19 05:08 08:08 08:09 Temperature 97.8 F Pulse Rate 78 54 L Respiratory 18 16 14 Rate Blood Pressure 115/78 Blood Pressure 126/68 [Left] O2 Sat by Pulse 97 98 98 Oximetry - Reevaluation(s) Reevaluation #1: Discussed with Dr. Viera. States admit to Dr. Walton 12/02/19 08:35 CIRILO score - Cirilo Score Age > 65: (0) No Aspirin use within the Past 7 Days: (0) No 3 or more CAD Risk Factors: (1) Yes 2 or more Angina events in past 24 hrs: (0) No Known CAD with more than 50% Stenosis: (0) No Elevated Cardiac Markers: (0) No ST Deviation Greater than 0.5mm: (0) No CIRILO Score: 1 ED Medical Decision Making - Lab Data Result diagrams: 12/02/19 06:06 12/02/19 06:06 Laboratory Results - last 24 hr 12/02/19 12/02/19 06:06 06:06 WBC 3.9 L RBC 5.18 H Hgb 11.9 Hct 37.9 MCV 73 L MCH 23 L MCHC 31 RDW 15.5 H Plt Count 282 Lymph % (Auto) 39.8 H Weld % (Auto) 11.3 H Eos % (Auto) 1.7 Baso % (Auto) 0.7 Lymph # 1.5 Weld # 0.4 Eos # 0.1 Baso # 0.0 Seg Neutrophils % 46.5 Seg Neutrophils # 1.8 Sodium 139 Potassium 3.8 Chloride 104.7 Carbon Dioxide 23 Anion Gap 15 BUN 15 Creatinine 0.5 L Estimated GFR > 60 BUN/Creatinine Ratio 30 Glucose 107 H Calcium 8.8 Troponin T < 0.010 - EKG Data EKG shows normal: sinus rhythm, axis, intervals, QRS complexes, ST-T waves Rate: normal - EKG Data Interpretation: LVH (suggestive of LVH by voltage criteria read 1 and aVL) - Radiology Data Radiology results: report reviewed (no acute process per radiologist) Critical care attestation.: If time is entered above; I have spent that time in minutes in the direct care of this critically ill patient, excluding procedure time. ED Disposition Clinical Impression: Dyslipidemia Chest pain Qualifiers: Chest pain type: unspecified Qualified Code(s): R07.9 - Chest pain, unspecified Disposition: -09 OP ADMIT IP TO THIS HOSP Is pt being admited?: Yes Does the pt Need Aspirin: Yes Condition: Stable Instructions: Chest Pain (ED) Time of Disposition: 08:36
[2019-12-02] MEDS ORDERED: CLOPIDOGREL 75 MG TAB PO ONE (08:37)
--- NOTE | 2019-12-02 09:55 | History and Physical Report ---
History of Present Illness Date of examination: 12/02/19 Date of admission: 12/02/19 Chief complaint: Chest pain since yesterday History of present illness: 59-year-old female patient with significant past medical history of hypertension CVA DVT seizures osteoarthritis and bronchial asthma , obesity and obstructive sleep apnea presented to the emergency room with intermittent chest pain since last night . Patient grades her pain between 5-6 over 10, pressure to squeezing type not associated with nausea vomiting or diaphoresis Patient sometimes feels short of breath, Past History Past Medical History: hypertension, hyperlipidemia, seizures, stroke, other (Bronchial asthma, peripheral neuropathy) Past Surgical History: cholecystectomy, hysterectomy, Other (Carotid stent placement, back surgery, renal stones, mitral valve prolapse) Social history: denies: smoking, alcohol abuse, prescription drug abuse Family history: hypertension Medications and Allergies Allergies Allergy/AdvReac Type Severity Reaction Status Date / Time aspirin Allergy Shortness Verified 12/02/17 13:38 of Breath Home Medications Medication Instructions Recorded Confirmed Last Taken Type ALBUTEROL Inhaler (OR & NICU) 2 puff IH BID PRN 12/02/19 12/02/19 Unknown History [ProAir HFA Inhaler] Atorvastatin [Lipitor Tab] 80 mg PO QHS 12/02/19 12/02/19 Unknown History Clopidogrel [Plavix] 75 mg PO QDAY 12/02/19 12/02/19 Unknown History Gabapentin [Neurontin] 800 mg PO TID 12/02/19 12/02/19 Unknown History amLODIPine [Norvasc] 10 mg PO DAILY 12/02/19 12/02/19 Unknown History cloNIDine [Catapres] 0.2 mg PO BID 12/02/19 12/02/19 Unknown History hydrALAZINE [Apresoline TAB] 100 mg PO BID 12/02/19 12/02/19 Unknown History levETIRAcetam [Keppra TAB] 750 mg PO BID 12/02/19 12/02/19 Unknown History lisinopriL [Zestril] 20 mg PO QDAY 12/02/19 12/02/19 Unknown History Review of Systems Constitutional: fatigue, no weight loss, no weight gain, no fever, no chills Ears, nose, mouth and throat: no nasal congestion, no nasal discharge Cardiovascular: chest pain, lightheadedness, shortness of breath, no orthopnea, no palpitations, no rapid/irregular heart beat Respiratory: shortness of breath, no cough, no hemoptysis Gastrointestinal: no abdominal pain, no nausea, no vomiting Genitourinary Female: no pelvic pain, no dysuria Musculoskeletal: no myalgias, no arthritis Integumentary: no rash, no lesions Neurological: no seizures, no syncope Psychiatric: no anxiety, no depression Endocrine: no cold intolerance, no heat intolerance Hematologic/Lymphatic: no easy bruising, no easy bleeding Allergic/Immunologic: no urticaria, no allergic rhinitis Exam - Constitutional Vitals: Temp Pulse Resp BP Pulse Ox 97.8 F 54 L 14 126/68 98 12/02/19 05:08 12/02/19 08:08 12/02/19 08:09 12/02/19 08:08 12/02/19 08:09 General appearance: Present: mild distress, well-nourished, obese - EENT Eyes: Present: PERRL, EOM intact - Neck Neck: Present: supple, normal ROM - Respiratory Respiratory effort: normal Respiratory: bilateral: diminished, negative: rales, rhonchi, wheezing - Cardiovascular Rhythm: regular Heart Sounds: Present: S1 & S2 - Extremities Extremities: no ischemia, No edema - Abdominal General gastrointestinal: Present: soft, non-tender, non-distended, normal bowel sounds - Integumentary Integumentary: Present: clear, warm - Musculoskeletal Musculoskeletal: strength equal bilaterally, generalized weakness - Psychiatric Psychiatric: appropriate mood/affect, cooperative - Neurologic Neurologic: moves all extremities Results - Labs CBC & Chem 7: 12/02/19 06:06 12/02/19 06:06 Labs: Abnormal lab results 12/02/19 12/02/19 Range/Units 06:06 06:06 WBC 3.9 L (4.5-11.0) K/mm3 RBC 5.18 H (3.65-5.03) M/mm3 MCV 73 L (79-97) fl MCH 23 L (28-32) pg RDW 15.5 H (13.2-15.2) % Lymph % (Auto) 39.8 H (13.4-35.0) % Sullivan % (Auto) 11.3 H (0.0-7.3) % Creatinine 0.5 L (0.7-1.2) mg/dL Glucose 107 H (65-100) mg/dL Assessment and Plan --Chest pain; Evaluate for acute coronary syndrome Serial cardiac enzymes, EKG as needed EF 60 to 65% and if not done in the last 6 months Cardiology consult, Continue Plavix amlodipine statin Nitroglycerin as needed, Pain medications --Hypertension; moderate control Continue current antihypertensives and PRN medications --Dyslipidemia; statin, low-cholesterol diet --Peripheral neuropathy; gabapentin and supportive care --History of seizures; seizure precautions Continue Kera --Obesity; BMI 36.6 Patient advised weight reduction when medically stable --Possible obstructive sleep apnea; CPAP BiPAP at night Need outpatient sleep study to rule out MANUEL --History of bronchial asthma; oxygen titrate O2 sats more than 90% Nebulizers, IV steroids as needed, supportive care --DVT prophylaxis; Lovenox Monitor closely and adjust management as needed Plan of care reviewed with the patient and her nurse Follow-up cardiology evaluation and recommendations Possible stress test to rule out ischemia I spent 50 minutes coordinating this admission
[2019-12-02] MEDS ORDERED: hydrALAZINE 10 MG TAB PO SCH (10:00)
[2019-12-02] MEDS: LISINOPRIL 10 MG TAB PO SCH (10:05)
[2019-12-02] MEDS: FAMOTIDINE 20 MG TAB PO SCH ×2 (10:07→21:14)
[2019-12-02] MEDS: CLOPIDOGREL 75 MG TAB PO SCH (10:07)
[2019-12-02] MEDS: levETIRAcetam 500 MG TAB PO SCH ×2 (10:07→21:14)
[2019-12-02] MEDS: cloNIDine 0.2 MG TAB PO SCH ×2 (10:08→21:15)
[2019-12-02] MEDS: GABAPENTIN 400 MG CAP PO SCH ×3 (12:08→21:14)
[2019-12-02] MEDS ORDERED: MORPHINE 2 MG/1 ML INJ IV ONE (13:00)
[2019-12-02] MEDS: hydrALAZINE 100 MG TAB PO SCH (21:15)
[2019-12-02] MEDS: oxyCODONE /ACETAMINOPHEN 5-325MG TAB PO PRN (21:35)
[2019-12-02] MEDS: ARFORMOTEROL 15 MCG/2 ML NEBU IH SCH (22:05)
[2019-12-03] MEDS: oxyCODONE /ACETAMINOPHEN 5-325MG TAB PO PRN ×3 (04:45→20:13)
[2019-12-03] MEDS: GABAPENTIN 400 MG CAP PO SCH ×3 (09:17→20:13)
[2019-12-03] MEDS: levETIRAcetam 500 MG TAB PO SCH ×2 (09:17→21:54)
[2019-12-03] MEDS: FAMOTIDINE 20 MG TAB PO SCH ×2 (09:17→21:54)
[2019-12-03] MEDS: CLOPIDOGREL 75 MG TAB PO SCH (09:17)
[2019-12-03] MEDS: cloNIDine 0.2 MG TAB PO SCH ×2 (09:21→21:54)
[2019-12-03] MEDS: LISINOPRIL 10 MG TAB PO SCH (09:21)
[2019-12-03] MEDS: hydrALAZINE 100 MG TAB PO SCH ×2 (09:21→21:54)
[2019-12-03] MEDS: ARFORMOTEROL 15 MCG/2 ML NEBU IH SCH ×2 (10:03→20:47)
--- NOTE | 2019-12-03 18:16 | Consultation ---
History of Present Illness Consult date: 12/03/19 Consult reason: chest pain History of present illness: Patient's a 59-year-old woman who presented with poorly described, atypical c hest pain. Serial ECGs have been normal sinus rhythm, normal ECG. Ago, she had an echocardiogram that reported normal left ventricle systolic function, ejection fraction 60-65%. Cardiac consultation was requested for chest pain assessment. Past History Past Medical History: hypertension, hyperlipidemia, seizures, stroke, other (Bronchial asthma, peripheral neuropathy) Past Surgical History: cholecystectomy, hysterectomy, Other (Carotid stent placement, back surgery, renal stones, mitral valve prolapse) Social history: denies: smoking, alcohol abuse, prescription drug abuse Family history: hypertension Medications and Allergies Allergies Allergy/AdvReac Type Severity Reaction Status Date / Time aspirin Allergy Shortness Verified 12/02/17 13:38 of Breath Home Medications Medication Instructions Recorded Confirmed Last Taken Type ALBUTEROL Inhaler (OR & NICU) 2 puff IH BID PRN 12/02/19 12/02/19 Unknown History [ProAir HFA Inhaler] Atorvastatin [Lipitor Tab] 80 mg PO QHS 12/02/19 12/02/19 Unknown History Clopidogrel [Plavix] 75 mg PO QDAY 12/02/19 12/02/19 Unknown History Gabapentin [Neurontin] 800 mg PO TID 12/02/19 12/02/19 Unknown History amLODIPine [Norvasc] 10 mg PO DAILY 12/02/19 12/02/19 Unknown History cloNIDine [Catapres] 0.2 mg PO BID 12/02/19 12/02/19 Unknown History hydrALAZINE [Apresoline TAB] 100 mg PO BID 12/02/19 12/02/19 Unknown History levETIRAcetam [Keppra TAB] 750 mg PO BID 12/02/19 12/02/19 Unknown History lisinopriL [Zestril] 20 mg PO QDAY 12/02/19 12/02/19 Unknown History Active Meds: Active Medications Arformoterol Tartrate (Brovana Nebu) 15 mcg IH Q12HRT [facility] Last Admin: 12/03/19 10:03 Dose: 15 mcg Documented by: Atorvastatin Calcium (Lipitor) 40 mg PO QHS [facility] Last Admin: 12/02/19 21:14 Dose: 40 mg Documented by: Clonidine HCl (Catapres) 0.2 mg PO BID [facility] Last Admin: 12/03/19 09:21 Dose: Not Given Documented by: Clopidogrel Bisulfate (Plavix) 75 mg PO QDAY [facility] Last Admin: 12/03/19 09:17 Dose: 75 mg Documented by: Famotidine (Pepcid) 20 mg PO BID [facility] Last Admin: 12/03/19 09:17 Dose: 20 mg Documented by: Gabapentin (Gabapentin) 400 mg PO TID [facility] Last Admin: 12/03/19 15:20 Dose: 400 mg Documented by: Hydralazine HCl (Apresoline) 100 mg PO BID [facility] Last Admin: 12/03/19 09:21 Dose: Not Given Documented by: Levetiracetam (Keppra) 750 mg PO BID [facility] Last Admin: 12/03/19 09:17 Dose: 750 mg Documented by: Lisinopril (Zestril) 10 mg PO QDAY [facility] Last Admin: 12/03/19 09:21 Dose: Not Given Documented by: Oxycodone/Acetaminophen (Percocet 5/325) 1 tab PO Q6H PRN PRN Reason: Pain, Moderate (4-6) Last Admin: 12/03/19 12:41 Dose: 1 tab Documented by: Review of Systems Cardiovascular: chest pain, no orthopnea, no palpitations, no rapid/irregular heart beat, no edema, no syncope, no lightheadedness, no shortness of breath Physical Examination Vital Signs Temp Pulse Resp BP Pulse Ox 97.8 F 78 18 115/78 97 12/02/19 05:08 12/02/19 05:08 12/02/19 05:08 12/02/19 05:08 12/02/19 05:08 General appearance: no acute distress HEENT: Positive: PERRL Neck: Positive: neck supple Cardiac: Positive: Reg Rate and Rhythm Lungs: Positive: clear to auscultation Neuro: Positive: Grossly Intact Abdomen: Positive: Soft Female genitourinary: deferred Skin: Positive: Clear Extremities: Absent: edema Results 12/02/19 06:06 12/02/19 06:06 EKG interpretations - Telemetry EKG Rhythm: Sinus Rhythm Assessment and Plan - Patient Problems (1) Chest pain, atypical Current Visit: Yes Status: Acute Plan to address problem: Patient presents with atypical chest pain, serial ECGs are normal, serial cardiac enzymes are normal. A recent echocardiogram reported left ventricle systolic function normal at 60%. A Lexiscan thallium stress test has been ordered for chest pain assessment and will be completed.
--- NOTE | 2019-12-03 18:33 | Progress Note ---
Assessment and Plan Assessment and plan: --Chest pain; mild improvement Serial cardiac enzymes, EKG as needed EF 60 to 65% Lexiscan stress test tomorrow In view of patient's multiple risk factors and intermittent chest pain Cardiology evaluation, Continue Plavix amlodipine statin Nitroglycerin as needed, Pain medications --Hypertension; moderate control Continue current antihypertensives and PRN medications --Dyslipidemia; statin, low-cholesterol diet --Peripheral neuropathy; gabapentin and supportive care --History of seizures; seizure precautions [facility] --Obesity; BMI 36.6 Patient advised weight reduction when medically stable --Possible obstructive sleep apnea; CPAP BiPAP at night Need outpatient sleep study to rule out MANUEL --History of bronchial asthma; oxygen titrate O2 sats more than 90% Nebulizers, IV steroids as needed, supportive care --DVT prophylaxis; Lovenox Monitor closely and adjust management as needed Plan of care reviewed with the patient and her nurse Disposition ; follow clinically , follow stress test If negative may be discharged home . Plan of care discussed with the patient and her nurse History Interval history: Patient seen and examined Medical records reviewed Patient has no new complaints Hospitalist Physical - Constitutional Vitals: Temp Pulse Resp BP Pulse Ox 98.5 F 66 20 136/83 99 12/03/19 12:03 12/03/19 12:03 12/03/19 04:55 12/03/19 12:03 12/03/19 12:03 General appearance: Present: no acute distress, well-nourished, obese - EENT Eyes: Present: PERRL, EOM intact - Neck Neck: Present: supple, normal ROM - Respiratory Respiratory effort: normal Respiratory: bilateral: diminished, negative: rales, rhonchi, wheezing - Cardiovascular Rhythm: regular Heart Sounds: Present: S1 & S2 - Extremities Extremities: no ischemia, No edema - Abdominal General gastrointestinal: soft, non-tender, non-distended, normal bowel sounds - Integumentary Integumentary: Present: clear, warm - Psychiatric Psychiatric: appropriate mood/affect, cooperative - Neurologic Neurologic: CNII-XII intact, moves all extremities Results - Labs CBC & Chem 7: 12/02/19 06:06 12/02/19 06:06 Labs: Laboratory Last Values WBC 3.9 K/mm3 (4.5-11.0) L 12/02/19 06:06 RBC 5.18 M/mm3 (3.65-5.03) H 12/02/19 06:06 Hgb 11.9 gm/dl (10.1-14.3) 12/02/19 06:06 Hct 37.9 % (30.3-42.9) 12/02/19 06:06 MCV 73 fl (79-97) L 12/02/19 06:06 MCH 23 pg (28-32) L 12/02/19 06:06 MCHC 31 % (30-34) 12/02/19 06:06 RDW 15.5 % (13.2-15.2) H 12/02/19 06:06 Plt Count 282 K/mm3 (140-440) 12/02/19 06:06 Lymph % (Auto) 39.8 % (13.4-35.0) H 12/02/19 06:06 [place] % (Auto) 11.3 % (0.0-7.3) H 12/02/19 06:06 Eos % (Auto) 1.7 % (0.0-4.3) 12/02/19 06:06 Baso % (Auto) 0.7 % (0.0-1.8) 12/02/19 06:06 Lymph # 1.5 K/mm3 (1.2-5.4) 12/02/19 06:06 [place] # 0.4 K/mm3 (0.0-0.8) 12/02/19 06:06 Eos # 0.1 K/mm3 (0.0-0.4) 12/02/19 06:06 Baso # 0.0 K/mm3 (0.0-0.1) 12/02/19 06:06 Seg Neutrophils % 46.5 % (40.0-70.0) 12/02/19 06:06 Seg Neutrophils # 1.8 K/mm3 (1.8-7.7) 12/02/19 06:06 Sodium 139 mmol/L (137-145) 12/02/19 06:06 Potassium 3.8 mmol/L (3.6-5.0) 12/02/19 06:06 Chloride 104.7 mmol/L (98-107) 12/02/19 06:06 Carbon Dioxide 23 mmol/L (22-30) 12/02/19 06:06 Anion Gap 15 mmol/L 12/02/19 06:06 BUN 15 mg/dL (7-17) 12/02/19 06:06 Creatinine 0.5 mg/dL (0.7-1.2) L 12/02/19 06:06 Estimated GFR > 60 ml/min 12/02/19 06:06 BUN/Creatinine Ratio 30 % 12/02/19 06:06 Glucose 107 mg/dL (65-100) H 12/02/19 06:06 Calcium 8.8 mg/dL (8.4-10.2) 12/02/19 06:06 Troponin T < 0.010 ng/mL (0.00-0.029) 12/02/19 21:13 Active Medications - Current Medications Current Medications: Generic Name Dose Route Start Last Admin Trade Name Freq PRN Reason Stop Dose Admin Arformoterol Tartrate 15 mcg 12/02/19 20:00 12/03/19 10:03 Brovana Nebu IH 15 mcg Q12HRT PEDRO Administration Atorvastatin Calcium 40 mg 12/02/19 22:00 12/02/19 21:14 Lipitor PO 40 mg QHS PEDRO Administration Clonidine HCl 0.2 mg 12/02/19 10:00 12/03/19 09:21 Catapres PO Not Given BID PEDRO Clopidogrel Bisulfate 75 mg 12/02/19 10:00 12/03/19 09:17 Plavix PO 75 mg QDAY PEDRO Administration Famotidine 20 mg 12/02/19 10:00 12/03/19 09:17 Pepcid PO 20 mg BID PEDRO Administration Gabapentin 400 mg 12/02/19 14:00 12/03/19 15:20 Gabapentin PO 400 mg TID PEDRO Administration Hydralazine HCl 100 mg 12/02/19 22:00 12/03/19 09:21 Apresoline PO Not Given BID PEDRO Levetiracetam 750 mg 12/02/19 10:00 12/03/19 09:17 Keppra PO 750 mg BID PEDRO Administration Lisinopril 10 mg 12/02/19 10:00 12/03/19 09:21 Zestril PO Not Given QDAY PEDRO Oxycodone/Acetaminophen 1 tab 12/02/19 21:15 12/03/19 12:41 Percocet 5/325 PO 1 tab Q6H PRN Administration Pain, Moderate (4-6)
[2019-12-03] MEDS ORDERED: ALBUTEROL 2.5 MG/3 ML NEBU IH ONE (23:15)
[2019-12-04] MEDS: oxyCODONE /ACETAMINOPHEN 5-325MG TAB PO PRN (02:04)
[2019-12-04] MEDS ORDERED: REGADENOSON 0.4 MG/5 ML INJ IV ONE ×2 (07:00→07:25)
[2019-12-04] MEDS: ARFORMOTEROL 15 MCG/2 ML NEBU IH SCH (10:05)
--- NOTE | 2019-12-04 13:07 | Event Note ---
Date: 12/04/19 Patient has no further chest pain, she completed a Lexiscan thallium stress test today, results are pending.
[2019-12-04 13:20] VITALS: BP 160/93
[2019-12-04] MEDS: CLOPIDOGREL 75 MG TAB PO SCH (14:05)
[2019-12-04] MEDS: levETIRAcetam 500 MG TAB PO SCH (14:05)
[2019-12-04] MEDS: FAMOTIDINE 20 MG TAB PO SCH (14:06)
[2019-12-04] MEDS: GABAPENTIN 400 MG CAP PO SCH (14:06)
[2019-12-04] MEDS: hydrALAZINE 100 MG TAB PO SCH (14:06)
[2019-12-04] MEDS: LISINOPRIL 10 MG TAB PO SCH (14:06)
[2019-12-04] MEDS: cloNIDine 0.2 MG TAB PO SCH (14:06)
--- NOTE | 2019-12-04 15:54 | Discharge Summary ---
Providers - Providers Date of Admission: 12/02/19 08:38 Date of discharge: 12/04/19 Attending physician: LOR VEGA 12/02/19 20:16 Consult to Physician [CONS] Routine Comment: Consulting Provider: RC BHANDARI Physician Instructions: Reason For Exam: chest pain Primary care physician: [employer] REPRESENTATIVE Hospitalization Reason for admission: Chest pain Condition: Stable Pertinent studies: Stress test : neg for ishemia CXR : neg Hospital course: 59-year-old female patient with significant past medical history of hypertension CVA DVT seizures osteoarthritis and bronchial asthma , obesity and obstructive sleep apnea presented to the emergency room with intermittent chest pain of one day duration.Evaluated by cardology, medcations optimised,had neg stress test. Patient's symptoms significantly improved. Today patient is comfortable, No new complants.Cleared by cardology Discharge Diagnosis: --Chest pain; mild improvement Serial cardiac enzymes, EKG as needed EF 60 to 65% Lexiscan stress test neg for ischemia In view of patient's multiple risk factors and intermittent chest pain Cardiology evaluation, Continue Plavix amlodipine statin Nitroglycerin as needed, Pain medications --Hypertension; moderate control Continue current antihypertensives and PRN medications --Dyslipidemia; statin, low-cholesterol diet --Peripheral neuropathy; gabapentin and supportive care --History of seizures; [facility] --Obesity; BMI 36.6 Patient advised weight reduction when medically stable --Possible obstructive sleep apnea; CPAP BiPAP at night Need outpatient sleep study to rule out MANUEL --History of bronchial asthma; oxygen titrate O2 sats more than 90% Nebulizers, IV steroids as needed, supportive care --DVT prophylaxis; Lovenox Monitor closely and adjust management as needed Plan of care reviewed with the patient and her nurse Stable at discharge Disposition: DC-01 TO HOME OR SELFCARE Time spent for discharge: 32 min Core Measure Documentation - Palliative Care Palliative Care/ Comfort Measures: Not Applicable - Core Measures Any of the following diagnoses?: none Exam - Constitutional Vitals: Temp Pulse Resp BP Pulse Ox 98.4 F 79 18 160/93 98 12/04/19 00:04 12/04/19 08:18 12/04/19 02:37 12/04/19 12:25 12/04/19 09:19 Plan Activity: advance as tolerated Diet: other (cardiac diet) Additional Instructions: If you have chest pain or shortness of breath contact M.D. or go to emergency room. Follow up with: PRIMARY CAREMD [Primary Care Provider] - 7 Days JEEVAN SNOW MD [Staff Physician] - 7 Days Prescriptions: AtorvaSTATin [Lipitor] 80 mg PO QHS #30 tab Clopidogrel [Plavix] 75 mg PO QDAY #30 tablet
--- NOTE | 2019-12-04 22:24 | Treadmill Report ---
THALLIUM STRESS TEST REPORT LEFT VENTRICLE: Left ventricular chamber size is within normal spread. Perfusion study demonstrates homogeneous uptake of the tracer in all segments, no significant perfusion defects identified. Gated analysis demonstrates normal left ventricular systolic function, ejection fraction 72%. CONCLUSION: Normal myocardial perfusion study. JOB# [id number] CA/NTS
== END 2019-12-04 17:40 | disposition home or self-care (01) ==
LOC: ED 04:55 → 4A 08:38
PROVIDERS: ADMIT Internal Medicine; ATTEND Internal Medicine
DX: I10 Essential (primary) hypertension (principal); E78.5 Hyperlipidemia, unspecified; G62.9 Polyneuropathy, unspecified; G81.91 Hemiplegia, unspecified affecting right dominant side; E66.2 Morbid (severe) obesity with alveolar hypoventilation; J45.909 Unspecified asthma, uncomplicated; Z68.36 Body mass index [BMI] 36.0-36.9, adult; Z86.73 Personal history of transient ischemic attack (TIA), and cerebral infarction without residual deficits; Z90.710 Acquired absence of both cervix and uterus
CPT/HCPCS: 36415; 71045; 78452; 80048; 82962; 84484; 85025; 93005; 93010; 93017; 94640; 94760; 96374; 99284; A9270; A9502; G0378; J2270; J2785

== ENCOUNTER 2022-02-17 10:21 | Emergency (ER) | payer MEDICARE ==
[2022-02-17] MEDS ORDERED: SODIUM CHLORIDE 0.9% 500 ML 500 ML IV ONE (11:34)
[2022-02-17] MEDS ORDERED: MORPHINE 4 MG/1 ML INJ IV ONE (11:34)
[2022-02-17] MEDS ORDERED: ONDANSETRON 4 MG/2 ML INJ IV ONE (11:35)
--- NOTE | 2022-02-17 12:25 | XRay Report ---
CHEST 2 VIEWS INDICATION / CLINICAL INFORMATION: Chest Pain. COMPARISON: 12/02/2019 FINDINGS: SUPPORT DEVICES: None. HEART / MEDIASTINUM: No significant abnormality. LUNGS / PLEURA: No significant pulmonary or pleural abnormality. No pneumothorax. ADDITIONAL FINDINGS: No significant additional findings. IMPRESSION: 1. No acute findings. Signer Name: Alonzo Chavez MD Signed: 02/17/2022 12:20 PM Workstation Name: [email or web address]
[2022-02-17 12:51] LABS: Basophils % (Auto) 0.4 % (0.0-1.8); Eosinophils % (Auto) 0.8 % (0.0-4.3); Hematocrit 34.8 % (30.3-42.9); Hemoglobin 11.1 gm/dl (10.1-14.3); Lymphocytes # (Auto) 1.4 K/mm3 (1.2-5.4); Lymphocytes % (Auto) 35.6 % (13.4-35.0); Mean Corpuscular HGB Conc 32 % (30-34); Mean Corpuscular Volume 74 fl (79-97); Monocytes # (Auto) 0.4 K/mm3 (0.0-0.8); Monocytes % (Auto) 11.2 % (0.0-7.3); Platelet Count 267 K/mm3 (140-440); Red Blood Count 4.73 M/mm3 (3.65-5.03); Red Cell Distribution Width 15.9 % (13.2-15.2)
[2022-02-17 13:06] LABS: Alanine Aminotransferase 39 units/L (7-56); Albumin 3.8 g/dL (3.9-5); Blood Urea Nitrogen 12 mg/dL (7-17); Calcium 9.2 mg/dL (8.4-10.2); Hemolysis Index 8
[2022-02-17 13:07] LABS: BUN/Creatinine Ratio 24
[2022-02-17] MEDS ORDERED: KETOROLAC 30 MG/1 ML INJ IV ONE (13:36)
--- NOTE | 2022-02-17 13:53 | Emergency Department Report ---
ED General Adult HPI - General Chief complaint: High BP Stated complaint: PAIN ALL OVER BODY CHEST Time Seen by Provider: 02/17/22 11:27 Source: patient Mode of arrival: Ambulatory Limitations: No Limitations - History of Present Illness Initial comments: PT PRESENTS TO ED WITH COMPLAINT OF BURNING ALL OVER BODY -: Gradual, week(s) Location: head, chest, abdomen Radiation: non-radiation Severity scale (0 -10): 10 Quality: aching Consistency: intermittent Associated Symptoms: denies: confusion, chest pain, headaches, loss of appetite - Related Data Home Medications Medication Instructions Recorded Confirmed Last Taken Albuterol Mdi (or & Nicu Only) 2 puff IH BID PRN 12/02/19 12/02/19 Unknown [ProAir HFA Inhaler] Gabapentin [Neurontin] 800 mg PO TID 12/02/19 12/02/19 Unknown amLODIPine 10 mg PO DAILY 12/02/19 12/02/19 Unknown cloNIDine [Catapres] 0.2 mg PO BID 12/02/19 12/02/19 Unknown hydrALAZINE [Apresoline TAB] 100 mg PO BID 12/02/19 12/02/19 Unknown levETIRAcetam [Keppra TAB] 750 mg PO BID 12/02/19 12/02/19 Unknown lisinopriL [Zestril TAB] 20 mg PO QDAY 12/02/19 12/02/19 Unknown Previous Rx's Medication Instructions Recorded Last Taken Type AtorvaSTATin [Lipitor] 80 mg PO QHS #30 tab 12/04/19 Unknown Rx Clopidogrel [Plavix] 75 mg PO QDAY #30 tablet 12/04/19 Unknown Rx Famotidine [Pepcid] 20 mg PO BID tablet 12/04/19 Unknown Rx Allergies Allergy/AdvReac Type Severity Reaction Status Date / Time aspirin Allergy Shortness Verified 12/02/17 13:38 of Breath ED Review of Systems ROS: Stated complaint: PAIN ALL OVER BODY CHEST Other details as noted in HPI Constitutional: denies: chills, fever Eyes: denies: eye pain, eye discharge, vision change ENT: denies: ear pain, throat pain Respiratory: denies: cough, shortness of breath, wheezing Cardiovascular: denies: chest pain, palpitations Endocrine: no symptoms reported Gastrointestinal: denies: abdominal pain, nausea, diarrhea Genitourinary: denies: urgency, dysuria, discharge Musculoskeletal: denies: back pain, joint swelling, arthralgia Skin: denies: rash, lesions Neurological: denies: headache, weakness, paresthesias Psychiatric: denies: anxiety, depression Hematological/Lymphatic: denies: easy bleeding, easy bruising ED Past Medical Hx - Past Medical History Previous Medical History?: Yes Hx Hypertension: Yes Hx CVA: Yes Hx Heart Attack/AMI: No Hx Congestive Heart Failure: No Hx Diabetes: No Hx Deep Vein Thrombosis: Yes Hx Liver Disease: No Hx Renal Disease: No Hx Sickle Cell Disease: No Hx Arthritis: Yes Hx Seizures: Yes Hx Kidney Stones: Yes Hx Asthma: Yes (last attach one year ago) Hx COPD: No Hx HIV: No Additional medical history: Sleep apnea. intubated 4 times due to asthma. gallstones. -January 2016 - Surgical History Past Surgical History?: Yes Hx Pacemaker: No Hx Internal Defibrillator: No Hx Cholecystectomy: Yes Additional Surgical History: blood clots to right side of head, stent to carotid artery? hysterectomy, MVP,. kidney stones. back sugery-rods/screws placed in December - Social History Smoking Status: Never Smoker - Medications Home Medications: Home Medications Medication Instructions Recorded Confirmed Last Taken Type Albuterol Mdi (or & Nicu Only) 2 puff IH BID PRN 12/02/19 12/02/19 Unknown History [ProAir HFA Inhaler] Gabapentin [Neurontin] 800 mg PO TID 12/02/19 12/02/19 Unknown History amLODIPine 10 mg PO DAILY 12/02/19 12/02/19 Unknown History cloNIDine [Catapres] 0.2 mg PO BID 12/02/19 12/02/19 Unknown History hydrALAZINE [Apresoline TAB] 100 mg PO BID 12/02/19 12/02/19 Unknown History levETIRAcetam [Keppra TAB] 750 mg PO BID 12/02/19 12/02/19 Unknown History lisinopriL [Zestril TAB] 20 mg PO QDAY 12/02/19 12/02/19 Unknown History AtorvaSTATin [Lipitor] 80 mg PO QHS #30 tab 12/04/19 Unknown Rx Clopidogrel [Plavix] 75 mg PO QDAY #30 tablet 12/04/19 Unknown Rx Famotidine [Pepcid] 20 mg PO BID tablet 12/04/19 Unknown Rx ED Physical Exam - General Limitations: No Limitations General appearance: alert, in no apparent distress - Head Head exam: Present: atraumatic, normocephalic - Eye Eye exam: Present: normal appearance - ENT ENT exam: Present: mucous membranes moist - Neck Neck exam: Present: normal inspection - Respiratory Respiratory exam: Present: normal lung sounds bilaterally. Absent: respiratory distress - Cardiovascular Cardiovascular Exam: Present: regular rate, normal rhythm. Absent: systolic murmur, diastolic murmur, rubs, gallop - GI/Abdominal GI/Abdominal exam: Present: soft, normal bowel sounds - Extremities Exam Extremities exam: Present: normal inspection - Back Exam Back exam: Present: normal inspection - Neurological Exam Neurological exam: Present: alert, oriented X3 - Psychiatric Psychiatric exam: Present: normal affect, normal mood - Skin Skin exam: Present: warm, dry, intact, normal color. Absent: rash ED Course Vital Signs 02/17/22 10:28 Temperature 97.6 F Pulse Rate 80 Respiratory 16 Rate Blood Pressure 221/118 [Left] O2 Sat by Pulse 97 Oximetry ED Medical Decision Making - Lab Data Result diagrams: 02/17/22 12:13 02/17/22 12:13 - EKG Data When compared to previous EKG there are: no significant change - Radiology Data Radiology results: report reviewed, image reviewed - Medical Decision Making work up noted , BP 180/90, pain meds given no distress Critical care attestation.: If time is entered above; I have spent that time in minutes in the direct care of this critically ill patient, excluding procedure time. ED Disposition Clinical Impression: Abdominal pain, chronic, generalized, Uncontrolled hypertension Disposition: HOME / SELF CARE / HOMELESS Is pt being admited?: No Does the pt Need Aspirin: No Condition: Stable Instructions: Hypertension (ED) Referrals: PRIMARY CARE,MD [Primary Care Provider] - 3-5 Days
[2022-02-17] MEDS ORDERED: cloNIDine 0.2 MG TAB PO ONE (15:04)
[2022-02-17 16:46] VITALS: BP 157/94
--- NOTE | 2022-02-19 11:19 | Electrocardiograph Report ---
[facility] Test Date: 2022-02-17 Test Time: 10:55:49 Pat Name: JO ANN VALERIO Department: Room: Gender: F Dolly Pusher: [place] : 1960 Requested By: FABIO REID Order Number: [id number] Reading MD: Richar Duarte Measurements Intervals [place] Rate: 70 P: 54 MN: 241 QRS: 7 QRSD: 95 T: 61 QT: 390 QTc: 421 Interpretive Statements Sinus rhythm Prolonged MN interval No previous ECG available for comparison Electronically Signed On 02-19-2022 11:19:04 EDT by Richar Duarte
== END 2022-02-17 16:48 | disposition home or self-care (01) ==
LOC: ED 10:21
DX: R10.84 Generalized abdominal pain (principal); I10 Essential (primary) hypertension; Z86.73 Personal history of transient ischemic attack (TIA), and cerebral infarction without residual deficits; M19.90 Unspecified osteoarthritis, unspecified site; R56.9 Unspecified convulsions; N20.0 Calculus of kidney; J45.909 Unspecified asthma, uncomplicated; Z86.718 Personal history of other venous thrombosis and embolism; Z91.09 Other allergy status, other than to drugs and biological substances; Z90.49 Acquired absence of other specified parts of digestive tract; Z79.899 Other long term (current) drug therapy
CPT/HCPCS: 36415; 71046; 80053; 83690; 84484; 85025; 93005; 96361; 96374; 96375; 99284; J2270; J7040

== ENCOUNTER 2022-07-08 07:05 | Emergency (ER) | payer MEDICARE ==
[2022-07-08 07:53] VITALS: BP 146/90
== END 2022-07-08 20:00 | disposition left against medical advice (07) ==
LOC: ED 07:05
DX: R10.9 Unspecified abdominal pain (principal); Z53.21 Procedure and treatment not carried out due to patient leaving prior to being seen by health care provider